=== PATIENT | female | born 1985 | race Caucasian/White ===

== ENCOUNTER 2020-10-19 09:17 | Emergency (ER) | payer OTHER ==
[~2020-10-19] VITALS: Ht 162.6 cm; Wt 59.0 kg
[2020-10-19] MEDS ORDERED: ZOLOFT100 MG PO (09:39)
[2020-10-19] MEDS ORDERED: ZYRTEC10 M5 PO (09:40)
[2020-10-19] MEDS ORDERED: WELLBUTRIN SR150 MG PO (09:40)
[2020-10-19] MEDS ORDERED: ANTIBIOTIC (09:41)
[2020-10-19] MEDS ORDERED: BIRTH CONTROL (09:41)
[2020-10-19] MEDS ORDERED: NORCO5 PO (10:45)
[2020-10-19 10:53] VITALS: BP 141/94
== END 2020-10-19 10:55 | disposition home or self-care (01) ==
LOC: M.ERS 09:17
DX: S39.012A Strain of muscle, fascia and tendon of lower back, initial encounter (principal); W18.39XA Other fall on same level, initial encounter; Y93.89 Activity, other specified; Y92.091 Bathroom in other non-institutional residence as the place of occurrence of the external cause; Y99.8 Other external cause status